=== PATIENT | male | born 1990 | race Caucasian/White ===

== ENCOUNTER 2023-07-25 08:10 | Outpatient (RCR) | payer OTHER, SELFPAY ==
[2023-07-25] MEDS: RABAVERT RABIES VACC W-DILUENT 2.5 UNIT IM (08:38)
== END 2023-07-28 11:10 | disposition home or self-care (01) ==
LOC: OID 08:10
PROVIDERS: ATTENDING PHYSICIAN Emergency Medicine; FAMILY PHYSICIAN Family Medicine
DX: Z20.3 Contact with and (suspected) exposure to rabies (principal); Z23 Encounter for immunization
CPT/HCPCS: 90471; 90675

== ENCOUNTER 2023-08-26 01:37 | Emergency (ER) | payer OTHER, SELFPAY ==
[2023-08-26 01:40] VITALS: BP 142/84
[2023-08-26 03:25] LABS: Urine Albumin Negative (Neg - Trace); Urine Bilirubin Negative (Negative); Urine Character Clear (Clear); Urine Color Yellow; Urine Glucose Negative (Negative); Urine Ketone Negative (Negative); Urine Leukocyte Negative (Negative); Urine Nitrite Negative (Negative); Urine Occult Blood Negative (Negative); Urine Urobilinogen Negative (Neg - 1+)
--- NOTE | 2023-08-26 03:50 | ED.GENMED ---
History of Present Illness
General
Chief Complaint: Male Genito-Urinary Symptoms
Source: patient
Exam Limitations: none
Time Seen by Provider: 08/26/23 03:03
Travel History
Have you had any contact with someone who has COVID-19?: No
Do you have any symptoms of coronavirus? Fever > 100 degrees, chills, cough, shortness of breath, sore throat, loss of taste or smell, muscle aches, or headache?: No
History of Present Illness
History of Present Illness:
33-year-old male who presents with persistent urinary frequency and urgency. Patient did see his primary doctor and was put on Bactrim. Patient states that symptoms have not changed. He reportedly was tested for STDs and was negative. Patient
denies abdominal pain but does admit to a pain and discomfort in his perineum. Also has a little bit discomfort with bowel movements. No fevers or vomiting.
Past History
Past History
ED Past Medical History: Other (Irritable bowel syndrome, OCD)
ED Past Surgical History: Appendectomy
Phy Exam
Physical Exam
Physical Exam:
CONSTITUTIONAL Patient alert and oriented to person, place and time. Well-appearing. Vital signs reviewed.
HEAD atraumatic, normocephalic.
EYES eyelids normal to inspection, Extraocular muscles intact, Conjunctiva normal, Sclera normal.
NECK normal range of motion, Trachea midline, no jugular venous distention.
RESPIRATORY CHEST No respiratory distress noted, Chest expansion equal, Bilateral breath sounds clear.
CARDIOVASCULAR regular rate and rhythm, Heart sounds normal.
ABDOMEN mild suprapubic tenderness, Bowel sounds normal. No distention.
moderate prostate tenderness, prostate is not boggy, normal in size
BACK normal inspection, no obvious deformities
UPPER EXTREMITY range of motion normal, Motor strength normal, no cyanosis, no edema.
LOWER EXTREMITY range of motion normal, Motor strength normal, no cyanosis, no edema.
NEURO Speech normal, No focal motor deficits, Bernardo coma scale 15, Memory normal, Cranial Nerves intact to screening exam.
SKIN skin warm, dry, and normal in color.
PSYCHIATRIC patient oriented to person place and time, Normal affect.
Course
Orders/Labs/Results
Orders:
Orders
08/26/23 03:16
Urinalysis Reflex To [facility]
Date Specimen was Collected: 08/26/23
Time Specimen was Collected: 03:15
Vital Signs
Initial and Last Documented VS:
Initial Vital Signs
Temp Pulse Resp BP Pulse Ox
97.3 F 70 18 142/84 98
08/26/23 01:40 08/26/23 01:40 08/26/23 01:40 08/26/23 01:40 08/26/23 01:40
Last Documented Vital Signs
Temp Pulse Resp BP Pulse Ox
97.3 F 70 18 142/84 98
08/26/23 01:40 08/26/23 01:40 08/26/23 01:40 08/26/23 01:40 08/26/23 01:40
MDM/Problems Addressed
MDM/Problems Addressed:
Prostatitis
*Pulse Oximetry
Patient hypoxic: no
*Critical Care Note
Total Time (30-74mins, 75-104mins- exclusive of procedures): Not Applicable
Data Reviewed
Source: patient
Further Testing Considered But Not Given:
Consider CBC and BMP but patient is well-appearing.
Patient Management
Escalation/DeEscalation of care consider admission/obs:
Will switch from Bactrim to Levaquin and refer to urology. Suspected prostatitis. May be chronic. No urinary retention. No fevers.
ED Attending Note
-
Portions of this chart may have been created with voice recognition software.� Occasional wrong word or��sound alike� substitutions may have occurred due to the inherent limitations of voice recognition software.
Discharge Plan
Departure
Patient Disposition: Home (Routine Discharge)
Date of Disposition: 08/26/23
Time of Disposition: 03:59
Patient with high blood pressure during this ER visit?: Yes
Discharge Problem:
Prostatitis
Instructions: Prostatitis (DC)
Prescriptions:
New
levofloxacin 500 mg tablet
500 mg PO DAILY 14 Days Qty: 14 0RF
No Action
fluoxetine [Prozac] 40 mg Capsule
80 mg PO DAILY
Referrals:
Tara Roe PA [Family Provider] -
Stan Rodríguez MD [Active] -
Activity Restrictions/Additional Instructions:
Please see urology in the next 3 to 5 days for follow-up. Return immediately for fevers, intractable vomiting, inability urinate or any other concerns.
Interventions
Interventions:
*Risk Screen - Suicide Last Done: 08/26/23 01:40
*Neglect/Abuse Screening Last Done: 08/26/23 01:40
ED-Male Genitourinary Assessment Last Done: 08/26/23 03:33
[2023-08-26] MEDS: LEVAQUIN 500 MG PO (04:22)
== END 2023-08-26 04:50 | disposition home or self-care (01) ==
LOC: EMR 01:37
PROVIDERS: EMERGENCY PHYSICIAN Emergency Medicine; FAMILY PHYSICIAN Physician Assistant
DX: N41.9 Inflammatory disease of prostate, unspecified (principal); R03.0 Elevated blood-pressure reading, without diagnosis of hypertension
CPT/HCPCS: 99283; 81003

== ENCOUNTER 2023-11-05 06:27 | Day surgery (SDC) | payer OTHER, SELFPAY ==
[2023-11-05 08:52] VITALS: BMI 30.4
[2023-11-05] MEDS: CELEBREX 200 MG PO (09:01)
[2023-11-05] MEDS: LYRICA 150 MG PO (09:01)
[2023-11-05] MEDS: TYLENOL 1000 MG PO (09:02)
[2023-11-05] MEDS: NORMOSOL-R 1000 IV (09:04)
[2023-11-05 12:07] VITALS: BP 121/75
--- NOTE | 2023-11-05 12:10 | OR.RPT ---
Operative Report
Operative Report
DATE OF OPERATION: 11/05/2023
SURGEON: Vel Servin MD
PREOPERATIVE DIAGNOSIS: Anal pain
POSTOPERATIVE DIAGNOSIS: Posterior midline anal fissure, posterior anal fistula, internal hemorrhoids
OPERATION: Exam under anesthesia, fistulotomy, excision of anal skin tag, fissurectomy, botox injection into the internal anal sphincter, bilateral pudendal nerve block
ASSISTANTS:
1. None
ANESTHESIA: MAC w/ local
ESTIMATED BLOOD LOSS: 10 mL
FINDINGS:
1. Posterior midline fistula associated with partially healed fissure
2. Anterior midline fissure completely healed/re-epithelialized
3. Small internal hemorrhoids in the RAQ, RPQ and LLQ, not irritated or bleeding
SPECIMENS:
1. Fistula tract
2. Anal skin tag
DRAINS: N/A
COMPLICATIONS: None
INDICATIONS: The patient is a 33-year-old male who presented with perianal pain and rectal bleeding. He was not able to tolerate anoscopy in the office, but on RODNEY, his sphincter tone was increased. His exam and story was most consistent with
anal fissure, despite inability to visualize it on exam. Therefore, the patient was recommended to have surgery to diagnose the cause of the anal pain and to treat it. I explained that if a fissure was found, I would inject Botox as he has not had
a complete response to the nifedipine/lidocaine cream. I explained that it is difficult to predict what I would find, but if it was something that I could fix in the operating room, I would. I explained that it is possible that I do not find
anything to explain his pain. If that is the case, I would recommend MRI of the pelvis. The operation was discussed with the patient in detail, including the risks, benefits and alternatives. Risks described included, but not limited to bleeding,
infection, urinary retention, damage to nearby structures such as the anal sphincter, fecal incontinence, anal stenosis, recurrence, and anesthetic risks. The patient understood and agreed to proceed. The consent was signed and placed in the chart.
PROCEDURE IN DETAIL: The patient was taken to the operating room and placed on the operating table in prone position. Sequential compression devices were placed bilaterally. Sedation was commenced without complication. Two seat belts were secured
around the legs and upper back. The buttocks were taped apart. The perineum was shaved, prepped and draped in the usual fashion. A time-out was then performed verifying the correct patient, procedure, operative site, positioning, and special
equipment.
Local anesthesia used was a mixture of 60 mL of 0.25% Marcaine without epinephrine (with epinephrine was on backorder) and 0.6 mg of dexamethasone. 40 mL was injected perianally at the beginning of the case. The anorectal exam was performed
assessing all four quadrants of the anal canal using Hill-Rios retractors in progressively increasing size. In the posterior midline, there appeared to be a partially healed anal fissure with a fistula associated with the healing anoderm.
There was also a large pendulous skin tag associated with the fissure that was slightly more to the left of midline. There was a small right posterior anal skin tag associated with a small external hemorrhoid that was not irritated or thrombosed.
There was an anterior midline fissure that had completely re-epithelialized and healed. There were small internal hemorrhoids in the RAQ, RPQ and LLQ that were not irritated or bleeding. It was evident that the patient's pain was related to this
fissure�fistula.
Using a Hernandez probe, I identified the external and internal opening of the fistula associated with the anal fissure by inserting the anal probe. On palpation, it was clear that there was minimal to no sphincter muscle involved. Therefore, using
electrocautery, I performed a fistulotomy. I curetted the fistula tract and sent the tract for pathology. Additionally, I curetted the base of the fissure itself. Hemostasis was achieved with electrocautery. I then elevated the anal skin tag
associated with the fissure and excised this using Metzenbaum scissors, taking care to stay above the anal sphincter. This was passed off as specimen. Again, hemostasis was achieved with electrocautery. I closely evaluated the anal canal for any
other internal openings with the Hernandez probes and none was discovered. As the internal sphincter appeared hypertonic using the large Hill-Rios, I elected to move forward with Botox injection. I had the external grinder tender mix 100 units in 2 mL of
sterile saline. I injected the Botox in equal amounts in the internal anal sphincter at the anterior and posterior midline as well as the right and left lateral positions.
The remaining 20 mL of local were injected. 5 mL was injected bilaterally for a pudendal nerve block. 10 mL was injected around the surgical site and perianally. Hemostasis was checked once more and confirmed. Surgicel was placed in the operative
site prophylactically.
At this point, the procedure was complete. All needle, sponge and instrument counts were correct. The patient tolerated the procedure well and was transferred to the recovery room in stable condition with gauze dressing in place secured with silk
tape.
DICTATED BY: Vel Servin MD
[2023-11-05 12:20] VITALS: BP 120/78
[2023-11-05 12:30] VITALS: BP 118/71
[2023-11-05 12:36] VITALS: BP 121/72
== END 2023-11-05 13:10 | disposition home or self-care (01) ==
LOC: SDS 06:27
PROVIDERS: ATTENDING PHYSICIAN Surgery
DX: K60.2 Anal fissure, unspecified (principal); K60.3 Anal fistula; K64.8 Other hemorrhoids; K62.5 Hemorrhage of anus and rectum; K62.89 Other specified diseases of anus and rectum
CPT/HCPCS: 46261; 46230; 46270; 88304; J0585

== ENCOUNTER 2024-07-29 06:25 | Day surgery (SDC) | payer OTHER, SELFPAY | END 2024-07-29 10:36 | disposition home or self-care (01) | LOC: GI 06:25 | PROVIDERS: ATTENDING PHYSICIAN Internal Medicine | DX: R19.8 Other specified symptoms and signs involving the digestive system and abdomen (principal); K62.5 Hemorrhage of anus and rectum; K59.4 Anal spasm; K62.89 Other specified diseases of anus and rectum; D12.3 Benign neoplasm of transverse colon | CPT/HCPCS: 45380; 88305 ==

== ENCOUNTER 2024-10-04 07:15 | Outpatient (RCR) | payer OTHER, SELFPAY | END 2024-10-04 23:59 | disposition home or self-care (01) | LOC: RPT 07:15 | PROVIDERS: ATTENDING PHYSICIAN Internal Medicine; FAMILY PHYSICIAN Family Medicine | DX: K59.4 Anal spasm (principal); M62.89 Other specified disorders of muscle; R10.2 Pelvic and perineal pain; Z73.6 Limitation of activities due to disability | CPT/HCPCS: 97112; 97163; 97530 ==

== ENCOUNTER 2024-12-10 08:10 | Outpatient (RCR) | payer OTHER, SELFPAY | END 2024-12-10 23:59 | disposition home or self-care (01) | LOC: RPT 08:10 | PROVIDERS: ATTENDING PHYSICIAN Internal Medicine; FAMILY PHYSICIAN Family Medicine | DX: K59.4 Anal spasm (principal); M62.89 Other specified disorders of muscle; R10.2 Pelvic and perineal pain; Z73.6 Limitation of activities due to disability | CPT/HCPCS: 97112; 97140; 97530 ==